=== PATIENT | female | born 1990 | race Caucasian/White ===

== ENCOUNTER 2018-05-25 20:39 | Inpatient (IN) | payer OTHER ==
[2018-05-25 21:39] VITALS: BMI 27.4
[2018-05-25] MEDS ORDERED: Lactated Ringer's 1,000 ML IV ONE (21:47)
[2018-05-25] MEDS ORDERED: Oxytocin 30 units/LR 500ML 30 U/500 ML BAG IV ONE (21:47)
[2018-05-25] MEDS ORDERED: Nalbuphine HCL 10 mg/ml Ampule IVP PRN (23:44)
[2018-05-25] MEDS: Lactated Ringer's 1,000 ML IV SCH (23:52)
[2018-05-26 00:21] LABS: BASO % 0.4 % (0.0-2.0); EOS % 0.3 % (0.0-4.0); HEMOGLOBIN 12.9 g/dL (12.0-16.0); LYMPH # 2.5 K/uL (1.0-4.3); MEAN CELL VOLUME 94.3 fl (81.0-99.0); MEAN CORPUSCULAR HEMOGLOBIN 32.3 pg (27.0-31.0); MEAN CORPUSCULAR HGB CONC 34.3 g/dL (33.0-37.0); MEAN PLATELET VOLUME 8.4 fl (7.2-11.7); MONO # 0.7 K/uL (0.0-0.8); MONO % 5.2 % (0.0-10.0); NEUT # 9.9 K/uL (1.8-7.0); NEUT % 75.1 % (50.0-75.0); NRBC % 0.1 % (0.0-0.0); RED CELL DISTRIBUTION WIDTH 14.3 % (11.5-14.5); WHITE BLOOD COUNT 13.2 K/uL (4.8-10.8)
[2018-05-26] MEDS ORDERED: Fentanyl/Bupivacaine HCl 250 ML EPI ONE (03:36)
[2018-05-26] MEDS: Lactated Ringer's 1,000 ML IV SCH (04:30)
[2018-05-26] MEDS ORDERED: Lidocaine Hydrochloride 10 ML INJ ONE (09:03)
[2018-05-26] MEDS ORDERED: Oxytocin 30 units/LR 500ML 30 U/500 ML BAG IV ONE (09:40)
--- NOTE | 2018-05-26 09:40 | OBPN ---
Datetime: 05/26/2018 09:31 IP Progress Impression: Normal progression of labor IP Procedures: Sterile Vag Exam IP Progress Plan: Continue present management Membranes, Provider: Ruptured Amniotic Fluid Color, Provider: Clear FHR - Baseline A Provider: 130 IP Progress Note Comment: 27 yo G1 at 37+5 wks w/ SROM, on pitocin, GBS negative Anticipate VD Vital Signs Provider: Reviewed NICHD Accel Fetus A IP Provider: 15X15 FHR Category Provider Fetus A: Category II NICHD Variability Prov Fetus A: Moderate 6-25bpm Dilatation, Provider: 10 Effacement, Provider: 100 Station, Provider: 2 NICHD Decel Fetus A IP Provider: Variable Datetime: 05/25/2018 21:18 Pool Provider: Positive Nitrazine Provider: Positive Contraction Comments Provider: Yes
[2018-05-26] MEDS ORDERED: OXYTOCIN/0.9 % NS 20 UNIT/1,000 ML BAG IV SCH (09:45)
--- NOTE | 2018-05-26 09:49 | OBHP ---
Datetime: 05/26/2018 09:31 FHR - Baseline A Provider: 130 Amniotic Fluid Color, Provider: Clear Membranes, Provider: Ruptured Vital Signs Provider: Reviewed NICHD Variability Prov Fetus A: Moderate 6-25bpm NICHD Accel Fetus A IP Provider: 15X15 FHR Category Provider Fetus A: Category II Dilatation, Provider: 10 Datetime: 05/25/2018 21:18 IP Adm Impression: Term, intrauterine ; Ruptured Membranes IP Admit Plan: Admit to unit; Initiate labor protocol Admit Comment, IP Provider: Pt is a 27 yo 37.3 wk TAHMINA 06/11/18 based on LMP 08/28/17 and 6 wk U/S 10/24/17 here due to SROM at 6:30pm tonight. She states she can feel fluid still leaking. She also s tates she started to have contractions since friday that have been consistant till today. Denies vagi nal bleeding and reports good movements. Pt is a [facility] patient shes sees Dr. Thompson. Denies any dizziness, headaches, blurry vision, CP, SOB, NVDC, or burning with urination. 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 PGY-1 [place] seen case discussed with Dr. Arango ob attending addendum: pt seen _ examined by me. agree with above assessment and plan. p: begin pitocin for augmentation. plan of care d/w pt ok for epidural w/ pt request. obtain pren records in am. Pelvic Type - PN: Adequate Extremities - PN: Normal Abdomen - PN: Normal Lungs - PN: Normal Heart - PN: Normal Neurologic - PN: Normal HEENT - PN: Normal General - PN: Normal Presentation-Admit: Vertex Contraction Comments Provider: Yes Comments, ACOG Physical Exam: + Grossly ruptured Pool Provider: Positive Nitrazine Provider: Positive IP Hx Assessment: The History has been Reviewed and is Current IP Chief Complaint: Uterine contractions; Suspected ruptured membranes NICHD Decel Fetus A IP Provider: None Effacement, Provider: 80 Station, Provider: -2
--- NOTE | 2018-05-26 09:54 | OBADHP ---
Datetime: 05/26/2018 09:31 Admit Comment, IP Provider: see hpi for 05/25 FHR - Baseline A Provider: 130 Amniotic Fluid Color, Provider: Clear Membranes, Provider: Ruptured Vital Signs Provider: Reviewed NICHD Variability Prov Fetus A: Moderate 6-25bpm NICHD Accel Fetus A IP Provider: 15X15 FHR Category Provider Fetus A: Category II Dilatation, Provider: 10 Datetime: 05/25/2018 21:18 Pelvic Type - PN: Adequate Extremities - PN: Normal Abdomen - PN: Normal Lungs - PN: Normal Heart - PN: Normal Neurologic - PN: Normal HEENT - PN: Normal General - PN: Normal Presentation-Admit: Vertex Contraction Comments Provider: Yes Comments, ACOG Physical Exam: + Grossly ruptured Pool Provider: Positive Nitrazine Provider: Positive IP Hx Assessment: The History has been Reviewed and is Current IP Chief Complaint: Uterine contractions; Suspected ruptured membranes NICHD Decel Fetus A IP Provider: None Effacement, Provider: 80 Station, Provider: -2 IP Adm Impression: Term, intrauterine ; Ruptured Membranes IP Admit Plan: Admit to unit; Initiate labor protocol
[2018-05-26] MEDS ORDERED: Oxycodone/Acetaminophen 5/325 mg Tab PO PRN (11:49)
[2018-05-26] MEDS ORDERED: Benzocaine/Menthol SPRAY TOP PRN ×2 (11:49→14:03)
--- NOTE | 2018-05-26 12:05 | OBDS ---
DELIVERY PERSONNEL Delivery Doctor: José Luis Dao MD Auto Damage Adjuster: Izzy Lora RN MATERNAL INFORMATION Delivery Anesthesia: Epidural Medications in Delivery: 30 units pitocin in 500 ml lr Placenta Cultured: No Maternal Complications: None Provider Comments: Pt progressed to complete and pushed to deliver a viable male through mamadou r fluid at 1034. Apgars 9 and 9. Wt 2950gms, 6#8.1. Infant placed on mother's abdomen. Cord doubl y clamped and FOB cut the cord. Cord blood collected. Placenta delivered spontaneously intact w/ a 3vc at 1038. Second degree tear repaired w/ 0-v, 2-0 rapide and 3-0 v. Rectum intact. EBL 150 mL LABOR SUMMARY EDC: 06/12/2018 00:00 No. Babies in Womb: 1 Attempted: No Labor Anesthesia: Epidural LABOR INFORMATION Reason for Induction: Not Applicable Complete Dilatation: 05/26/2018 09:30 Oxytocin: Augmentation Group B Beta Strep: Negative Antibiotics # of Doses: 0 Steroids Given: None Reason Steroids Not Administered: Not Applicable MEMBRANES Membranes Rupture Method: Spontaneous Rupture of Membranes: 05/25/2018 18:30 Length of Rupture (hrs): 16.07 Amniotic Fluid Color: Clear Amniotic Fluid Amount: Moderate Amniotic Fluid Odor: Normal STAGES OF LABOR Stage 2 hrs: 1 Stage 2 min: 4 Stage 3 hrs: 0 Stage 3 min: 4 VAGINAL DELIVERY Episiotomy: None Laceration Extension: Second Degree Laceration Type: Perineal Laceration Repair: Yes Initial Vag Sponge Count: 15 Final Vag Sponge Count: 15 Initial Vag Sharps Count: 5 Final Vag Sharps Count: 5 Sponge Count Correct: Yes Sharps Count Correct: Yes CSECTION DELIVERY Primary Indication: N/A Secondary Indication: N/A CSection Urgency: N/A CSection Incidence: N/A Labor: N/A Elective: N/A CSection Incision: N/A BABY A INFORMATION Infant Delivery Date/Time: 05/26/2018 10:34 Method of Delivery: Vaginal Born in Route : No : N/A Forceps: N/A Vacuum Extraction: N/A Shoulder Dystocia : Yes SHOULDER DYSTOCIA BABY A Delivery Date/Time: 05/26/2018 10:34 PRESENTATION/POSITION BABY A Presentation: Cephalic Cephalic Presentation: Vertex Vertex Position: Left Occipital Anterior Breech Presentation: N/A PLACENTA INFORMATION BABY A Placenta Delivery Time : 05/26/2018 10:38 Placenta Method of Delivery: Spontaneous Placenta Status: Delivered SCORES BABY A Heart Rate 1 min: >100 bpm Resp Effort 1 min: Good Cry Reflex Irritability 1 min: Cough or Sneeze or Pulls Away Muscle Tone 1 min: Active Motion Color 1 min: Body [place], Extremities Blue SCORE 1 MIN: 9 Heart Rate 5 min: >100 bpm Resp Effort 5 min: Good Cry Reflex Irritability 5 min: Cough or Sneeze or Pulls Away Muscle Tone 5 min: Active Motion Color 5 min: Completely [place] SCORE 5 MIN: 10 INFANT INFORMATION BABY A Gestational Age at Delivery: 37.0 Gestational Status: Term Infant Outcome : Liveborn Infant Condition : Stable Sex: Male IDENTIFICATION/MEDS BABY A ID Band Number: [id number] WEIGHT/LENGTH BABY A Birthweight (gms): 2950 Infant Weight (lb): 6 Infant Weight (oz): 8 CORD INFORMATION BABY A No. Cord Vessels: 3 Nuchal Cord : N/A Cord Blood Taken: Yes Suction: Mouth; Nose ASSESSMENT BABY A Complications: None Physical Findings at Delivery: Within Normal Limits Respirations: Appears Normal Academic Affairs Specialist/ALS Called : No Infant Care By: Elisha Hunter Transferred To: Remains with Mother
[2018-05-27] MEDS: Oxycodone/Acetaminophen 5/325 mg Tab PO PRN (09:38)
--- NOTE | 2018-05-27 10:22 | OBPPN ---
Datetime: 05/27/2018 10:18 PP Pain Prov: Within normal limits PP Nausea Prov: Denies PP Flatus Prov: Yes PP Breasts Prov: Not Done PP Heart Prov: Normal PP Lungs Prov: Normal PP Abdomen/Uterus Prov: Normal PP Lochia Prov: Not Done PP Vulva/Perineum Prov: Not Done PP CVA Tenderness Prov: Normal PP Extremities Prov: Normal PP Progress Prov: Normal PP Impression Prov: Normal progression PP Plan Prov: Continue present management PP Progress Note Prov: Patient doing well reports minimal lochia ambulating tolerating diet Vital signs stable afebrile Uterus firm below the umbilicus Extremities no Homans day #1 Ambulation, regular diet, analgesia, probable discharge in a.m. Vital Signs Provider PP: Reviewed
[2018-05-27 11:40] LABS: BASO % 0.3 % (0.0-2.0); EOS # 0.1 K/uL (0.0-0.7); EOS % 0.8 % (0.0-4.0); HEMOGLOBIN 10.6 g/dL (12.0-16.0); LYMPH # 2.1 K/uL (1.0-4.3); LYMPH % 16.4 % (20.0-40.0); MEAN CELL VOLUME 95.2 fl (81.0-99.0); MEAN CORPUSCULAR HEMOGLOBIN 32.4 pg (27.0-31.0); MEAN PLATELET VOLUME 7.9 fl (7.2-11.7); MONO # 0.6 K/uL (0.0-0.8); NEUT # 9.8 K/uL (1.8-7.0); NEUT % 77.5 % (50.0-75.0); NRBC % 0.1 % (0.0-0.0); RBC 3.26 Mil/uL (3.80-5.20); RED CELL DISTRIBUTION WIDTH 14.1 % (11.5-14.5); WHITE BLOOD COUNT 12.7 K/uL (4.8-10.8)
[2018-05-28] MEDS: Oxycodone/Acetaminophen 5/325 mg Tab PO PRN (10:11)
--- NOTE | 2018-05-28 11:32 | OBPPN ---
Datetime: 05/28/2018 11:29 PP Pain Prov: Within normal limits PP Nausea Prov: Denies PP Flatus Prov: Yes PP BM Prov: Yes PP Breasts Prov: Normal PP Heart Prov: Normal PP Lungs Prov: Normal PP Abdomen/Uterus Prov: Normal PP Lochia Prov: Normal PP Vulva/Perineum Prov: Normal PP CVA Tenderness Prov: Normal PP Extremities Prov: Normal PP Comments Phys Exam Prov: Abdomen soft, nontender, nondistended Uterus firm, below umbilicus No deep Tenderness bilaterally. PP Impression Prov: Normal progression PP Plan Prov: Discharge PP Progress Note Prov: day #2 status post , patient recovering well Discharge patient home with instructions Follow up in office in 6 weeks IP PP Procedures: None
--- NOTE | 2018-05-28 11:35 | OBDCSUM ---
Datetime: 05/28/2018 10:38 Discharged to, Provider: Home Follow up at, Provider: [facility] Disch Instr Activity: Normal activity Disch Instr Diet: Regular Discharge Instructions, Provider: Routine instructions given Discharge Diagnosis, Provider: Term Delivered Discharge Time: 05/28/2018 11:32 Follow up in weeks, Provider: in 4 to 6 weeks Disch Referrals: None Contraception discussed, Prov: Yes Contraception after Delivery: Undecided
[2018-05-28 17:23] VITALS: BP 114/70; PULSE 64; RESP 20; TEMP 98; O2SAT 100
== END 2018-05-28 13:05 | disposition home or self-care (01) | DRG 775 ==
LOC: H.EROB2 20:39 → H.L&D 21:48 → H.OB/GYN 05-26 13:25
PROVIDERS: ADMIT Obstetrics & Gynecology; ATTEND Obstetrics & Gynecology
PROC: 4A1HXCZ Monitoring of Products of Conception, Cardiac Rate, External Approach (ICD-10-PCS; 2018-05-25)
PROC: 10E0XZZ Delivery of Products of Conception, External Approach (ICD-10-PCS; principal; 2018-05-26)
PROC: 0KQM0ZZ Repair Perineum Muscle, Open Approach (ICD-10-PCS; 2018-05-26)
DX: O66.0 Obstructed labor due to shoulder dystocia (principal); Z37.0 Single live birth; O70.1 Second degree perineal laceration during delivery; Z3A.37 37 weeks gestation of pregnancy